=== PATIENT | female | born 1985 | race Caucasian/White ===

== ENCOUNTER 2018-12-14 09:35 | Emergency (ER) | payer OTHER ==
[~2018-12-14] VITALS: Ht 160 cm; Wt 74.8 kg
[2018-12-14] MEDS ORDERED: DOXYCYCLINE HY100 MG PO (10:57)
[2018-12-14] MEDS ORDERED: TESSALON PERLE100 MG PO (10:57)
[2018-12-14] MEDS ORDERED: PROMETHAZINE-D473 M1 PO (10:57)
== END 2018-12-14 11:37 | disposition home or self-care (01) ==
LOC: ED 09:35
DX: J40 Bronchitis, not specified as acute or chronic (principal); Z88.2 Allergy status to sulfonamides; Z88.1 Allergy status to other antibiotic agents; Z88.5 Allergy status to narcotic agent
CPT/HCPCS: 71045; 99283-25

== ENCOUNTER 2019-04-19 14:03 | Emergency (ER) | payer OTHER ==
[~2019-04-19] VITALS: Ht 160 cm; Wt 74.8 kg
[~2019-04-19 14:03] MED LIST: DOXYCYCLINE HY100 MG PO; PROMETHAZINE-D473 M1 PO; TESSALON PERLE100 MG PO
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
== END 2019-04-19 16:00 | disposition home or self-care (01) ==
LOC: ED 14:03
DX: S80.12XA Contusion of left lower leg, initial encounter (principal); Z87.891 Personal history of nicotine dependence; Z88.2 Allergy status to sulfonamides; Z88.1 Allergy status to other antibiotic agents; Z88.5 Allergy status to narcotic agent; Z88.6 Allergy status to analgesic agent; V89.2XXA Person injured in unspecified motor-vehicle accident, traffic, initial encounter
CPT/HCPCS: 99282

== ENCOUNTER 2020-11-26 08:57 | Emergency (ER) | payer OTHER ==
[~2020-11-26] VITALS: Ht 160 cm; Wt 74.8 kg
[2020-11-26] MEDS ORDERED: ULTRAM50 MG PO (14:07)
[2020-11-26] MEDS ORDERED: FLOMAX0.4 MG PO (14:10)
== END 2020-11-26 14:32 | disposition home or self-care (01) ==
LOC: ED 08:57
DX: N20.1 Calculus of ureter (principal); F17.200 Nicotine dependence, unspecified, uncomplicated; Z88.2 Allergy status to sulfonamides; Z88.8 Allergy status to other drugs, medicaments and biological substances; Z88.5 Allergy status to narcotic agent
CPT/HCPCS: 74177; 76830; 76856; 81001; 84703; 85025; 99284-25; J7030

== ENCOUNTER 2021-01-15 05:40 | Day surgery (SDC) | payer OTHER ==
[~2021-01-15] VITALS: Ht 160 cm; Wt 69.5 kg
--- NOTE | ~2021-01-15 | OR ---
[facility] [address] [place], [place] [address] Draft DATE OF OPERATION: 01/15/2021 SURGEON: Ana Quiles MD PREOPERATIVE DIAGNOSIS: A 4 mm distal right ureteral calculus. POSTOPERATIVE DIAGNOSES: 1. A 4 mm distal right ureteral calculus. 2. Ureteral narrowing due to impaction of 4 mm distal ureteral calculus. NAMES OF PROCEDURES: 1. Diagnostic cystoscopy with right retrograde pyelogram. 2. Right semi-rigid ureteroscopy with laser lithotripsy and basket extraction of stone fragments. 3. Insertion of indwelling right ureteral stent. ANESTHESIA: General. ESTIMATED BLOOD LOSS: Minimal. COMPLICATIONS: None. SPECIMENS: Fragments of right ureteral calculus sent to the lab for stone analysis. DRAINS: A 6 x 24 cm double-J ureteral stent inserted into the right ureter. INDICATIONS FOR PROCEDURE: Ms. Jane is a very pleasant 35-year-old female who recently presented to me with right flank pain. She had undergone a CT scan in the Emergency Department which revealed a 4 mm distal right ureteral calculus. After attempting a trial of passage for approximately 10 days, the patient contacted the clinic with severe discomfort. She elected at that time to undergo right ureteroscopy with laser lithotripsy and basket extraction of her stone. The risks and benefits of the procedure were discussed with the patient at that time and she agrees to proceed. PATIENT NAME: ROLDAN JANE OPERATIVE REPORT DATE OF : 81 REPORT #: [id number] PHYSICIAN: ANA QUILES MD PCP: SHAUN POTTER REPORT IS CONFIDENTIAL AND NOT TO BE RELEASED WITHOUT AUTHORIZATION [facility] [address] [place], [place] [address] Draft FINDINGS: 1. On cystoscopy, there was no evidence of any suspicious masses, lesions, or stones. Bilateral ureteral orifices are in their normal anatomic location. 2. Right retrograde pyelogram was performed which revealed a 1 cm filling defect in the distal right ureter. The remainder of the ureter was of normal caliber without any other overt filling defects. 3. The 4 mm stone fragmented quite easily using a holmium laser at 8 and 0.8 settings. A ZeroTip basket was used to successfully extract all of the stone fragments from the right ureter. Of note, there was a moderate 4-5 mm stricture noted just at the level of the stone, indicating an impacted stone. Once the stone was cleared, there was a small amount of scar tissue located in the area of impaction. 4. A 6 x 24 cm double-J ureteral stent was inserted into the right ureter under direct visualization without difficulty. DESCRIPTION OF PROCEDURE: After informed consent was obtained, the patient was taken back to the operating room. She was transferred from the [facility] to the operating room table, where general anesthesia was induced. She was placed in the dorsal lithotomy position and her genitalia prepped and draped in a standard sterile fashion. Using a 30-degree lens on a 22.5-Ukrainian introducer, a rigid cystoscope was inserted through her urethra into her bladder under direct visualization. Panendoscopic views of bladder were then obtained. Please see above findings. I turned my attention to the right ureteral orifice. A right retrograde pyelogram was performed using a cone-tipped catheter. Please see above findings. I then advanced a semi-rigid ureteroscope into the distal right ureter. I could appreciate significant narrowing in approximately 2 cm to 3 cm superior to the right ureteral orifice. The ureter had become stenotic in this area. I passed a Sensor wire through the area of stenosis and up into the right kidney. Over the wire, I passed the semi-rigid scope through the small stricture and up into the proximal ureter. I immediately noticed the 4 mm stone just sitting above the area of impaction. The stone was fragmented using a holmium laser at 8 and 0.8 settings with 270 micron fiber. The stone fragmented in three pieces, all of which I was able to retrieve using the ZeroTip basket. After the stone was cleared, the narrowed area of the ureter appeared significantly more patent. However, I did appreciate a very small area of scar tissue where the previous stricture had been located. With the stone completely free from the ureter, I advanced a Sensor wire through the ureteroscope and into the right renal pelvis. A 6 x 24 cm double-J ureteral stent was inserted into the right ureter under direct visualization without difficulty. A string was left attached to the stent. The string was secured to the patient's mons pubis. Her bladder was then emptied using a cystoscope and the procedure was then terminated. The patient tolerated the procedure well without any complication. She will now be transferred to the postanesthesia care unit in stable condition. PATIENT NAME: ROLDAN JANE OPERATIVE REPORT DATE OF : 81 REPORT #: [id number] PHYSICIAN: ANA QUILES MD PCP: SHAUN POTTER REPORT IS CONFIDENTIAL AND NOT TO BE RELEASED WITHOUT AUTHORIZATION [address] [address] Draft DISPOSITION: I discussed the details of today's procedure with the patient's mother and answered all of her questions. The patient will need to keep the stent in place for the next 5 days. She was instructed to remove her indwelling right ureteral stent on January 20. She will be off work until January 22. She will be sent home today with a prescription for Ultram 50 mg one tablet p.o. q.6 hours p.r.n. pain, dispense #30. She was also given a prescription for Cipro for a total of 7 days. The patient will be scheduled return to clinic in 6 weeks for postoperative evaluation. At that time, I will likely order an IVP to continue with adequate drainage from the right ureter. MD GONZALES Bello/CASSIE /[id number] Copies: ~ PATIENT NAME: ROLDAN JANE OPERATIVE REPORT DATE OF : 81 REPORT #: [id number] PHYSICIAN: ANA QUILES MD PCP: SHAUN POTTER REPORT IS CONFIDENTIAL AND NOT TO BE RELEASED WITHOUT AUTHORIZATION
[~2021-01-15 05:40] MED LIST changes: +AMITRIPTYLINE H25 MG PO; +FLOMAX0.4 MG PO; +RIZATRIPTAN10 M1 PO; +ULTRAM50 MG PO
--- NOTE | 2021-01-15 07:08 | NUR ---
PT UP TO BATHROOM WITH IV POLE. STATES RIGHT HAND IV IS UNCOMFORTABLE; IV PATENT, RUNS WELL WITH NO REDNESS OR SIGN OF INFILTRATION. PT BACK IN BED, WATCHING TABLET WITH LIGHTS DIMMED. CALL LIGHT WITHIN REACH.
--- NOTE | 2021-01-15 09:12 | NUR ---
01/15/21 0912 Mariaa Lawton 0830 PT ARRIVED IN PACU TRYING TO CLIMB OUT OF BED. RN REORIENTING PT. 0840 C/O URGE TO VOID. UP TO BSC. VOIDED 50ML PINK COLORED URINE. BACK IN BED. 0850 C/O FEELING COLD. WARM BLANKETS GIVEN. 09 TO DS. REPORT GIVEN TO RN.
--- NOTE | 2021-01-15 09:13 | NUR ---
0905: PT ARRIVES BACK TO DS TREATMENT ROOM FROM PACU AWAKE. PT DENIES NAUSEA AND STATES PAIN 8/10 IN SURGICAL SITE. PT PROVIDED WATER AND PUDDING PER REQUEST. PLAN TO GIVE PO PAIN MEDS IF PT CAN TOLERATE FOOD. CALL LIGHT WITHIN REACH, PT HAS PERSONAL CELL PHONE. SIMÓN SAMANO PLACED ON WARM.
--- NOTE | 2021-01-15 09:25 | NUR ---
PT TOLERATES PO WELL WITH NO COMPLAINTS OF NAUSEA, SECOND PUDDING PROVIDED PER REQUEST. PT UP TO BATHROOM WITH RN ASSIST, ABLE TO VOID PINK\RED-TINGED URINE WITH PAIN. PT BACK TO BED, BLANKETS PROVIDED, CALL LIGHT WITHIN REACH.
--- NOTE | 2021-01-15 09:45 | NUR ---
PT UP TO BATHROOM WITH RN ASSIST, HUNCHES OVER WITH PAIN WHEN STANDING UPRIGHT. PT ABLE TO VOID APPROX 50 MLS PINK URINE. PT BACK TO BED WITH BLANKETS AND SIMÓN HUGGER ON WARM. CALL LIGHT WITHIN REACH.
[2021-01-15] MEDS ORDERED: ULTRAM50 MG PO (10:03)
--- NOTE | 2021-01-15 10:14 | NUR ---
PT RESTING IN BED, CONT TO HAVE PAIN 8/10 WHEN ASKED. PT HAS QUESTIONS ABOUT STENT AND WHEN IT CAN BE REMOVED, THIS RN PLANS TO CONFIRM WITH DR. QUILES. PT DENIES PAIN MEDS, WILL PROVIDE WARM COMPRESS FOR PT. PT UP TO BATHROOM WITH RN ASSIST, VOIDS QS PINK URINE. CALL LIGHT WITHIN REACH.
--- NOTE | 2021-01-15 10:43 | NUR ---
DC CRITERIA MET AND PT WOULD LIKE TO DC HOME. PT DRESSES SELF AND OPENS CURTAIN. IV REMOVED WNL, TIP IN TACT. PT TO BATHROOM WITH STEADY GAIT. DC INSTRUCTIONS PRESENTED TO PT. PT SLUMPS OVER SIDE OF BED WINCING IN PAIN, ASKING "WHEN WILL THIS PAIN GO AWAY?" THIS RN STATES THAT PT NEEDS TO REST IN BED AND OFFERS PAIN MEDICATION. PT DENIES PAIN MEDICATION AND INSISTS ON DISCHARGING HOME. PT EDUCATED ABOUT STENT AND THIS RN SPEAKS TO DR. QUILES ABOUT PT STATUS/PAIN. DR. QUILES AGREES PT MAY DC HOME PER REQUEST AND OFFERS PT TO USE HEATING PAD AND TAKE WARM BATHS ALONG WITH TRAMADOL MEDICATION. PT DC TO [facility]RI[facility] WAITING AT MAIN HOSPITAL ENTRANCE TO HOME. DC PACKET INCLUDES PAIN SCRIPT AND WORK RELEASE.
== END 2021-01-15 10:50 | disposition home or self-care (01) ==
LOC: DS 05:40
PROVIDERS: ATTEND Urology
PROC: 0T768DZ Dilation of Right Ureter with Intraluminal Device, Via Natural or Artificial Opening Endoscopic (ICD-10-PCS; principal; 2021-01-15 06:45)
PROC: 0TC68ZZ Extirpation of Matter from Right Ureter, Via Natural or Artificial Opening Endoscopic (ICD-10-PCS; 2021-01-15 06:45)
DX: N20.1 Calculus of ureter (principal); Z88.1 Allergy status to other antibiotic agents; Z88.5 Allergy status to narcotic agent; Z88.8 Allergy status to other drugs, medicaments and biological substances
CPT/HCPCS: 00918; 74420; 82365; C1769; C2617; J0690; J1100; J1885; J2250; J2405; J2704; J2765; J3010; J7121; Q9967

== ENCOUNTER 2021-01-26 17:09 | Emergency (ER) | payer OTHER ==
[~2021-01-26] VITALS: Ht 160 cm; Wt 68.0 kg
--- OUTSIDE RECORDS SUMMARY | 2021-01-26 17:12 | XMS ---
PreManage Notification: ROLDAN PEGUERO Security Ultrasonographer Events No recent Security Events currently on file CRITERIA MET - [facility] CARE PROVIDERS PRO POTTER Physician Director Financial Planning 04/20/2019-Current PHONE: [phone] Juan Manuel has no Care Guidelines for this patient. Care History Medical/Surgical 04/20/2019 [facility] - PATIENT HAS SHAUN POTTER PCP - [facility]. 12/15/2018 [facility] - CHW CALLED PATIENT AND LEFT A VOICEMAIL- TO HELP PATIENT SET UP AN APT TO ESTABLISH CARE WITH A PCP. - SENT PATIENT NO PCP LETTER. 12/15/2018 [facility] - PATIENT HAS AN APT TO ESTABLISH CARE WITH [facility] ON Friday12/23/18 @ 10:15AM. - PATIENT IS AWARE OF THE APT AND IS GOING TO THE APT PER PATIENT. E.D. VISIT COUNT (12 MO.) 3 [facility] TOTAL 3 NOTE: Visits indicate total known visits. ED/UCC VISIT TRACKING (12 MO.) 01/26/2021 17:[address] [facility] [place] TYPE: Emergency COMPLAINT: - SOB, CHILLS, HARD TO SWALLOW, FATIGUE 12/21/2020 10:01 [facility] [place] TYPE: Emergency COMPLAINT: - R SIDE FLANK PAIN DIAGNOSES: - Other fpc (current) drug therapy - Allergy status to narcotic agent - Unspecified abdominal pain - Allergy status to other drugs, medicaments and biological substances - Allergy status to other antibiotic agents - Hydronephrosis with renal and ureteral calculous obstruction - Allergy status to sulfonamides 11/26/2020 08:[address] [facility] [place] TYPE: Emergency COMPLAINT: - N/V, CRAMPING DIAGNOSES: - Allergy status to narcotic agent - Allergy status to other drugs, medicaments and biological substances - Right lower quadrant pain - Calculus of ureter - Nicotine dependence, unspecified, uncomplicated - Allergy status to sulfonamides INPATIENT VISIT TRACKING (12 MO.) No inpatient visits to display in this time frame [id number]
== END 2021-01-26 18:33 | disposition home or self-care (01) ==
LOC: ED 17:09
DX: G43.909 Migraine, unspecified, not intractable, without status migrainosus (principal); M79.10 Myalgia, unspecified site; Z87.891 Personal history of nicotine dependence; Z88.2 Allergy status to sulfonamides; Z88.8 Allergy status to other drugs, medicaments and biological substances; Z88.6 Allergy status to analgesic agent; Z88.5 Allergy status to narcotic agent
CPT/HCPCS: 99283

== ENCOUNTER 2021-03-16 16:49 | Emergency (ER) | payer OTHER ==
[~2021-03-16] VITALS: Ht 160 cm; Wt 68.0 kg
--- OUTSIDE RECORDS SUMMARY | 2021-03-16 16:52 | XMS ---
PreManage Notification: ROLDAN PEGUERO Security Financial Director Events No recent Security Events currently on file CRITERIA MET - [facility] CARE PROVIDERS PRO POTTER Physician Pressing Machine Tender 04/20/2019-Current PHONE: [phone] Juan Manuel has no Care Guidelines for this patient. Care History Medical/Surgical 04/20/2019 [facility] - PATIENT HAS SHAUN POTTER PCP - [facility]. 12/15/2018 [facility] - CHW CALLED PATIENT AND LEFT A VOICEMAIL- TO HELP PATIENT SET UP AN APT TO ESTABLISH CARE WITH A PCP. - SENT PATIENT NO PCP LETTER. 12/15/2018 [facility] - PATIENT HAS AN APT TO ESTABLISH CARE WITH [facility] ON Friday12/23/18 @ 10:15AM. - PATIENT IS AWARE OF THE APT AND IS GOING TO THE APT PER PATIENT. E.D. VISIT COUNT (12 MO.) 4 [facility] [place] [facility] TOTAL 4 NOTE: Visits indicate total known visits. ED/UCC VISIT TRACKING (12 MO.) 03/16/2021 16:[address] [facility] [place] TYPE: Emergency COMPLAINT: - RT ARM INJURY 01/26/2021 17:[address] [facility] [place] TYPE: Emergency COMPLAINT: - SETHI, SOB DIAGNOSES: - Myalgia, unspecified site - Allergy status to other drugs, medicaments and biological substances - Personal history of nicotine dependence - Allergy status to narcotic agent - Migraine, unspecified, not intractable, without status migrainosus - Allergy status to analgesic agent - Allergy status to sulfonamides - Headache, unspecified 12/21/2020 10:01 [facility] [place] TYPE: Emergency COMPLAINT: - R SIDE FLANK PAIN DIAGNOSES: - Other residential (current) drug therapy - Allergy status to narcotic agent - Unspecified abdominal pain - Allergy status to other drugs, medicaments and biological substances - Allergy status to other antibiotic agents - Hydronephrosis with renal and ureteral calculous obstruction - Allergy status to sulfonamides 11/26/2020 08:58 [facility] [place] TYPE: Emergency COMPLAINT: - N/V, CRAMPING DIAGNOSES: - Allergy status to narcotic agent - Allergy status to other drugs, medicaments and biological substances - Right lower quadrant pain - Calculus of ureter - Nicotine dependence, unspecified, uncomplicated - Allergy status to sulfonamides INPATIENT VISIT TRACKING (12 MO.) No inpatient visits to display in this time frame [id number]
== END 2021-03-16 18:38 | disposition home or self-care (01) ==
LOC: ED 16:49
DX: G56.21 Lesion of ulnar nerve, right upper limb (principal); Z88.2 Allergy status to sulfonamides; Z88.1 Allergy status to other antibiotic agents; Z88.6 Allergy status to analgesic agent; Z88.8 Allergy status to other drugs, medicaments and biological substances; Z88.5 Allergy status to narcotic agent; Z79.899 Other long term (current) drug therapy
CPT/HCPCS: 73080; 99283-25

== ENCOUNTER 2021-05-21 12:31 | Emergency (ER) | payer OTHER ==
[~2021-05-21] VITALS: Ht 162.6 cm; Wt 68.0 kg
--- OUTSIDE RECORDS SUMMARY | 2021-05-21 12:34 | XMS ---
PreManage Notification: ROLDAN PEGUERO Security Garbage Pick Up Worker Events No recent Security Events currently on file [facility] PRO POTTER Physician Replanting Machine Crew 04/20/2019-Current PHONE: [phone] Juan Manuel has no Care Guidelines for this patient. Care History Medical/Surgical 04/20/2019 [facility] - PATIENT HAS SHAUN POTTER PCP - [facility]. 12/15/2018 [facility] - CHW CALLED PATIENT AND LEFT A VOICEMAIL- TO HELP PATIENT SET UP AN APT TO ESTABLISH CARE WITH A PCP. - SENT PATIENT NO PCP LETTER. 12/15/2018 [facility] - PATIENT HAS AN APT TO ESTABLISH CARE WITH [facility] ON Friday12/23/18 @ 10:15AM. - PATIENT IS AWARE OF THE APT AND IS GOING TO THE APT PER PATIENT. E.D. VISIT COUNT (12 MO.) 5 [facility] TOTAL 5 NOTE: Visits indicate total known visits. ED/UCC VISIT TRACKING (12 MO.) 05/21/2021 12:[address] [facility] [place] TYPE: Emergency COMPLAINT: - L EYE IRRATION 03/16/2021 16:49 [facility] [place] TYPE: Emergency COMPLAINT: - RT ARM INJURY DIAGNOSES: - Allergy status to sulfonamides - Other terminal make up operator (current) drug therapy - Allergy status to other drugs, medicaments and biological substances - Pain in right elbow - Allergy status to other antibiotic agents - Allergy status to narcotic agent - Lesion of ulnar nerve, right upper limb - Allergy status to analgesic agent 01/26/2021 17:10 [facility] [place] TYPE: Emergency COMPLAINT: - SETHI, SOB [...] R SIDE FLANK PAIN DIAGNOSES: - Other terminal make up operator (current) drug therapy - Allergy status to [...] visits to display in this time frame [id number]
[2021-05-21] MEDS ORDERED: VERAPAMIL HCL40 MG PO (13:08)
[2021-05-21] MEDS ORDERED: VENTOLIN HFA18 GM INH (13:09)
== END 2021-05-21 13:56 | disposition home or self-care (01) ==
LOC: ED 12:31
DX: H11.32 Conjunctival hemorrhage, left eye (principal); Z88.2 Allergy status to sulfonamides; Z88.1 Allergy status to other antibiotic agents; Z88.5 Allergy status to narcotic agent; Z88.6 Allergy status to analgesic agent; Z79.899 Other long term (current) drug therapy
CPT/HCPCS: 99282

== ENCOUNTER 2022-03-04 11:42 | Emergency (ER) | payer OTHER ==
[~2022-03-04] VITALS: Ht 162.6 cm; Wt 75.8 kg
[~2022-03-04 11:42] MED LIST changes: +VENTOLIN HFA18 GM INH; +VERAPAMIL HCL40 MG PO
[2022-03-04] MEDS ORDERED: REGLAN10 MG PO (13:09)
== END 2022-03-04 13:55 | disposition home or self-care (01) ==
LOC: ED 11:42
DX: G43.909 Migraine, unspecified, not intractable, without status migrainosus (principal); Z87.891 Personal history of nicotine dependence; Z88.8 Allergy status to other drugs, medicaments and biological substances; Z88.5 Allergy status to narcotic agent; Z79.899 Other long term (current) drug therapy
CPT/HCPCS: 96374; 96375; 99283-25; J1100; J2765; J7030

== ENCOUNTER 2022-06-13 12:26 | Emergency (ER) | payer OTHER ==
[~2022-06-13] VITALS: Ht 162.6 cm; Wt 71.1 kg
[~2022-06-13 12:26] MED LIST changes: +REGLAN10 MG PO
[2022-06-13] MEDS ORDERED: NORETHINDRONE0.35 MG PO (13:12)
== END 2022-06-13 15:31 | disposition home or self-care (01) ==
LOC: ED 12:26
DX: J02.9 Acute pharyngitis, unspecified (principal); G43.909 Migraine, unspecified, not intractable, without status migrainosus; Z87.891 Personal history of nicotine dependence; Z88.2 Allergy status to sulfonamides; Z88.1 Allergy status to other antibiotic agents; Z88.6 Allergy status to analgesic agent; Z88.5 Allergy status to narcotic agent; Z88.8 Allergy status to other drugs, medicaments and biological substances; Z79.899 Other long term (current) drug therapy
CPT/HCPCS: 87081; 87880; 99283

== ENCOUNTER 2022-06-25 14:07 | Emergency (ER) | payer OTHER ==
[~2022-06-25] VITALS: Ht 162.6 cm; Wt 70.8 kg
[~2022-06-25 14:07] MED LIST changes: +NORETHINDRONE0.35 MG PO
--- OUTSIDE RECORDS SUMMARY | 2022-06-25 14:14 | XMS ---
PreManage Notification: ROLDAN PEGUERO Security Filenet Admin Events No recent Security Events currently on file CRITERIA MET - [facility] - 2 Visits in 30 Days CARE PROVIDERS PRO POTTER Physician Direct Mail Marketer 04/20/2019-Current PHONE: [phone] Juan Manuel has no Care Guidelines for this patient. Care History Medical/Surgical 04/20/2019 [facility] - PATIENT HAS SHAUN POTTER PCP - [facility]. 12/15/2018 [facility] - CHW CALLED PATIENT AND LEFT A VOICEMAIL- TO HELP PATIENT SET UP AN APT TO ESTABLISH CARE WITH A PCP. - SENT PATIENT NO PCP LETTER. 12/15/2018 [facility] - PATIENT HAS AN APT TO ESTABLISH CARE WITH [facility] ON Friday12/23/18 @ 10:15AM. - PATIENT IS AWARE OF THE APT AND IS GOING TO THE APT PER PATIENT. E.D. VISIT COUNT (12 MO.) 3 [facility] TOTAL 3 NOTE: Visits indicate total known visits. ED/UCC VISIT TRACKING (12 MO.) 06/25/2022 14:07 [facility] [place] TYPE: Emergency COMPLAINT: - HEADACHE 06/13/2022 12:27 [facility] [place] TYPE: Emergency COMPLAINT: - L SIDE NECK SWELLING DIAGNOSES: - Other it compliance analyst (current) drug therapy - Personal history of nicotine dependence - Allergy status to other antibiotic agents - Allergy status to analgesic agent - Migraine, unspecified, not intractable, without status migrainosus - Allergy status to sulfonamides - Allergy status to other drugs, medicaments and biological substances - Acute pharyngitis, unspecified - Allergy status to narcotic agent 03/04/2022 11:[address] [facility] [place] TYPE: Emergency COMPLAINT: - HEADACHE, NAUSEA, STIFF NECK DIAGNOSES: - Other nursing home (current) drug therapy - Migraine, unspecified, not intractable, without status migrainosus - Headache, unspecified - Allergy status to narcotic agent - Allergy status to other drugs, medicaments and biological substances - Personal history of nicotine dependence INPATIENT VISIT TRACKING (12 MO.) No inpatient visits to display in this time frame [id number]
[2022-06-25] MEDS ORDERED: REGLAN10 MG PO (15:31)
== END 2022-06-25 16:10 | disposition home or self-care (01) ==
LOC: ED 14:07
DX: G43.909 Migraine, unspecified, not intractable, without status migrainosus (principal); Z87.442 Personal history of urinary calculi; Z87.891 Personal history of nicotine dependence; Z88.2 Allergy status to sulfonamides; Z88.6 Allergy status to analgesic agent; Z88.5 Allergy status to narcotic agent; Z88.8 Allergy status to other drugs, medicaments and biological substances; Z79.899 Other long term (current) drug therapy
CPT/HCPCS: 96372; 99283; J1100; J2765

== ENCOUNTER 2022-07-04 17:17 | Emergency (ER) | payer OTHER ==
[~2022-07-04] VITALS: Ht 162.6 cm; Wt 70.8 kg
--- OUTSIDE RECORDS SUMMARY | 2022-07-04 17:24 | XMS ---
PreManage Notification: ROLDAN PEGUERO Security Desk Maker Events No recent Security Events currently on file CRITERIA MET - [facility] - 2 Visits in 30 Days CARE PROVIDERS PRO POTTER Physician Certified Nurse Operating Room 04/20/2019-Current PHONE: [phone] Juan Manuel has no Care Guidelines for this patient. Care History Medical/Surgical 04/20/2019 [facility] - PATIENT HAS SHAUN POTTER PCP - [facility]. 12/15/2018 [facility] - CHW CALLED PATIENT AND LEFT A VOICEMAIL- TO HELP PATIENT SET UP AN APT TO ESTABLISH CARE WITH A PCP. - SENT PATIENT NO PCP LETTER. 12/15/2018 [facility] - PATIENT HAS AN APT TO ESTABLISH CARE WITH [facility] ON Friday12/23/18 @ 10:15AM. - PATIENT IS AWARE OF THE APT AND IS GOING TO THE APT PER PATIENT. E.D. VISIT COUNT (12 MO.) 4 [facility] TOTAL 4 NOTE: Visits indicate total known visits. ED/UCC VISIT TRACKING (12 MO.) 07/04/2022 17:17 [facility] [place] TYPE: Emergency COMPLAINT: - HEADACHE 06/25/2022 14:07 [facility] [place] TYPE: Emergency COMPLAINT: - HEADACHE DIAGNOSES: - Allergy status to analgesic agent - Allergy status to sulfonamides - Personal history of nicotine dependence - Allergy status to other drugs, medicaments and biological substances - Migraine, unspecified, not intractable, without status migrainosus - Other parts counterman (current) drug therapy - Allergy status to narcotic agent - Personal history of urinary calculi 06/13/2022 12:27 [facility] [place] TYPE: Emergency COMPLAINT: - L SIDE NECK SWELLING DIAGNOSES: - Allergy status to other antibiotic agents - Allergy status to analgesic agent - Migraine, unspecified, not intractable, without status migrainosus - Allergy status to sulfonamides - Allergy status to other drugs, medicaments and biological substances - Acute pharyngitis, unspecified - Allergy status to narcotic agent - Other parts counterman (current) drug therapy - Personal history of nicotine dependence 03/04/2022 11:43 [facility] [place] TYPE: Emergency COMPLAINT: - HEADACHE, NAUSEA, STIFF NECK DIAGNOSES: - Migraine, unspecified, not intractable, without status migrainosus - Headache, unspecified - Allergy status to narcotic agent - Allergy status to other drugs, medicaments and biological substances - Personal history of nicotine dependence - Other parts counterman (current) drug therapy INPATIENT VISIT TRACKING (12 MO.) No inpatient visits to display in this time frame [id number]
[2022-07-04] MEDS ORDERED: BUTALB-ACETAMI1 EAC2 PO (20:48)
== END 2022-07-04 21:10 | disposition home or self-care (01) ==
LOC: ED 17:17
DX: O99.891 Other specified diseases and conditions complicating pregnancy (principal); G43.909 Migraine, unspecified, not intractable, without status migrainosus; Z87.891 Personal history of nicotine dependence; Z88.6 Allergy status to analgesic agent; Z88.5 Allergy status to narcotic agent; Z88.8 Allergy status to other drugs, medicaments and biological substances; Z3A.00 Weeks of gestation of pregnancy not specified
CPT/HCPCS: 84703; 96374; 96375; 99283-25; J1100; J2765; J7030

== ENCOUNTER 2022-07-27 16:17 | Emergency (ER) | payer OTHER ==
[~2022-07-27] VITALS: Ht 162.6 cm; Wt 71.1 kg
[~2022-07-27 16:17] MED LIST changes: +BUTALB-ACETAMI1 EAC2 PO
--- OUTSIDE RECORDS SUMMARY | 2022-07-27 16:24 | XMS ---
PreManage Notification: ROLDAN PEGUERO Security Chief Radiologic Technologist Events No recent Security Events currently on file CRITERIA MET - [facility] [place] - 2 Visits in 30 Days CARE PROVIDERS PRO POTTER Physician Reel Cutter 04/20/2019-Current PHONE: [phone] Juan Manuel has no Care Guidelines for this patient. Care History Medical/Surgical 04/20/2019 [facility] - PATIENT HAS SHAUN POTTER PCP - [facility]. 12/15/2018 [facility] - [facility] CALLED PATIENT AND LEFT A VOICEMAIL- TO HELP PATIENT SET UP AN APT TO ESTABLISH CARE WITH A PCP. - SENT PATIENT NO PCP LETTER. 12/15/2018 [facility] - PATIENT HAS AN APT TO ESTABLISH CARE WITH [facility] ON Friday12/23/18 @ 10:15AM. - PATIENT IS AWARE OF THE APT AND IS GOING TO THE APT PER PATIENT. E.D. VISIT COUNT (12 MO.) 5 [facility] TOTAL 5 NOTE: Visits indicate total known visits. ED/UCC VISIT TRACKING (12 MO.) 07/27/2022 16:17 [facility] [place] TYPE: Emergency COMPLAINT: - VAGINAL BLEEDING 07/04/2022 17:17 [facility] [place] TYPE: Emergency COMPLAINT: - HEADACHE DIAGNOSES: - Weeks of gestation of not specified - Allergy status to narcotic agent - Migraine, unspecified, not intractable, without status migrainosus - Allergy status to analgesic agent - Other specified diseases and conditions complicating - Allergy status to other drugs, medicaments and biological substances - Personal history of nicotine dependence 06/25/2022 14:07 [facility] [place] TYPE: Emergency COMPLAINT: - HEADACHE DIAGNOSES: - Allergy status to narcotic agent - Personal history of urinary calculi - Allergy status to analgesic agent - Allergy status to sulfonamides - Personal history of nicotine dependence - Allergy status to other drugs, medicaments and biological substances - Migraine, unspecified, not intractable, without status migrainosus - Other coater associate (current) drug therapy 06/13/2022 12:27 [facility] [place] TYPE: Emergency COMPLAINT: - L SIDE NECK SWELLING DIAGNOSES: - Other snf (current) drug therapy - Personal history of nicotine dependence - Allergy status to other antibiotic agents - Allergy status to analgesic agent - Migraine, unspecified, not intractable, without status migrainosus - Allergy status to sulfonamides - Allergy status to other drugs, medicaments and biological substances - Acute pharyngitis, unspecified - Allergy status to narcotic agent 03/04/2022 11:43 [facility] [place] TYPE: Emergency COMPLAINT: - HEADACHE, NAUSEA, STIFF NECK DIAGNOSES: - Other snf (current) drug therapy - Migraine, unspecified, not intractable, without status migrainosus - Headache, unspecified - Allergy status to narcotic agent - Allergy status to other drugs, medicaments and biological substances - Personal history of nicotine dependence INPATIENT VISIT TRACKING (12 MO.) No inpatient visits to display in this time frame [email or web address]
== END 2022-07-27 19:08 | disposition home or self-care (01) ==
LOC: ED 16:17
DX: O20.9 Hemorrhage in early pregnancy, unspecified (principal); O99.351 Diseases of the nervous system complicating pregnancy, first trimester; G43.909 Migraine, unspecified, not intractable, without status migrainosus; Z87.891 Personal history of nicotine dependence; Z88.8 Allergy status to other drugs, medicaments and biological substances; Z88.2 Allergy status to sulfonamides; Z88.6 Allergy status to analgesic agent; Z88.5 Allergy status to narcotic agent; Z79.899 Other long term (current) drug therapy; Z3A.01 Less than 8 weeks gestation of pregnancy
CPT/HCPCS: 36415; 76801; 76815; 76817; 80053; 84702; 85025; 86900; 86901; 99284-25; J7030

== ENCOUNTER 2022-08-24 18:54 | Emergency (ER) | payer OTHER ==
[~2022-08-24] VITALS: Ht 162.6 cm; Wt 75.8 kg
--- OUTSIDE RECORDS SUMMARY | 2022-08-24 19:04 | XMS ---
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 Care History Medical/Surgical 04/20/2019 [facility] - PATIENT HAS SHAUN POTTER PCP - [facility]. 12/15/2018 [facility] - CHW CALLED PATIENT AND LEFT A VOICEMAIL- TO HELP PATIENT SET UP AN APT TO ESTABLISH CARE WITH A PCP. - SENT PATIENT NO PCP LETTER. 12/15/2018 [facility] - PATIENT HAS AN APT TO ESTABLISH CARE WITH [facility] ON Friday12/23/18 @ 10:15AM. - PATIENT IS AWARE OF THE APT AND IS GOING TO THE APT PER PATIENT. E.D. VISIT COUNT (12 MO.) 6 [facility] TOTAL 6 NOTE: Visits indicate total known visits. ED/UCC VISIT TRACKING (12 MO.) 08/24/2022 18:56 [facility] [place] TYPE: Emergency COMPLAINT: - DENTAL PAIN 07/27/2022 16:17 [facility] [place] TYPE: Emergency COMPLAINT: - VAGINAL BLEEDING DIAGNOSES: - Allergy status to narcotic agent - Migraine, unspecified, not intractable, without status migrainosus - Other manager terminal (current) drug therapy - Personal history of nicotine dependence - Less than 8 weeks gestation of - Diseases of the nervous system complicating , first trimester - Allergy status to other drugs, medicaments and biological substances - Allergy status to analgesic agent - Hemorrhage in early , unspecified - Allergy status to sulfonamides 07/04/2022 17:17 [facility] [place] TYPE: Emergency COMPLAINT: - HEADACHE DIAGNOSES: - Allergy status to other drugs, medicaments and biological substances - Personal history of nicotine dependence - Weeks of gestation of not specified - Allergy status to narcotic agent - Migraine, unspecified, not intractable, without status migrainosus - Allergy status to analgesic agent - Other specified diseases and conditions complicating 06/25/2022 14:07 [facility] [place] TYPE: Emergency COMPLAINT: - HEADACHE DIAGNOSES: - Migraine, unspecified, not intractable, without status migrainosus - Other alf (current) drug therapy - Allergy status to narcotic agent - Personal history of urinary calculi - Allergy status to analgesic agent - Allergy status to sulfonamides - Personal history of nicotine dependence - Allergy status to other drugs, medicaments and biological substances 06/13/2022 12:27 [facility] [place] TYPE: Emergency COMPLAINT: - L SIDE NECK SWELLING DIAGNOSES: - Acute pharyngitis, unspecified - Allergy status to narcotic agent - Other manager terminal (current) drug therapy - Personal history of nicotine dependence - Allergy status to other antibiotic agents - Allergy status to analgesic agent - Migraine, unspecified, not intractable, without status migrainosus - Allergy status to sulfonamides - Allergy status to other drugs, medicaments and biological substances 03/04/2022 11:[address] [facility] [place] TYPE: Emergency COMPLAINT: - HEADACHE, NAUSEA, STIFF NECK DIAGNOSES: - Allergy status to other drugs, medicaments and biological substances - Personal history of nicotine dependence - Other manager terminal (current) drug therapy - Migraine, unspecified, not intractable, without status migrainosus - Headache, unspecified - Allergy status to narcotic agent INPATIENT VISIT TRACKING (12 MO.) No inpatient visits to display in this time frame [email or web address]
[2022-08-24] MEDS ORDERED: EPINEPHRIN0.3 MG/0.3 IM (19:25)
[2022-08-24] MEDS ORDERED: VENTOLIN HFA18 GM INH (19:27)
[2022-08-24] MEDS ORDERED: ONE-A-DAY PREN1 EAC2 PO (19:27)
[2022-08-24] MEDS ORDERED: CALCIUM500 MG PO (19:27)
[2022-08-24] MEDS ORDERED: AMOXICILLIN500 MG PO (20:12)
== END 2022-08-24 20:37 | disposition home or self-care (01) ==
LOC: ED 18:54
DX: K04.7 Periapical abscess without sinus (principal); Z87.442 Personal history of urinary calculi; Z88.8 Allergy status to other drugs, medicaments and biological substances; Z88.2 Allergy status to sulfonamides; Z88.5 Allergy status to narcotic agent; Z88.6 Allergy status to analgesic agent; Z87.891 Personal history of nicotine dependence
CPT/HCPCS: 99282

== ENCOUNTER 2022-09-15 16:46 | Emergency (ER) | payer OTHER ==
[~2022-09-15] VITALS: Ht 162.6 cm; Wt 75.0 kg
[~2022-09-15 16:46] MED LIST changes: +AMOXICILLIN500 MG PO; +CALCIUM500 MG PO; +EPINEPHRIN0.3 MG/0.3 IM; +ONE-A-DAY PREN1 EAC2 PO
--- OUTSIDE RECORDS SUMMARY | 2022-09-15 16:49 | XMS ---
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 Care History Medical/Surgical 04/20/2019 [facility] - PATIENT HAS SHAUN POTTER PCP - [facility]. 12/15/2018 [facility] - CHW CALLED PATIENT AND LEFT A VOICEMAIL- TO HELP PATIENT SET UP AN APT TO ESTABLISH CARE WITH A PCP. - SENT PATIENT NO PCP LETTER. 12/15/2018 [facility] - PATIENT HAS AN APT TO ESTABLISH CARE WITH [facility] ON Friday12/23/18 @ 10:15AM. - PATIENT IS AWARE OF THE APT AND IS GOING TO THE APT PER PATIENT. E.D. VISIT COUNT (12 MO.) 7 [facility] TOTAL 7 NOTE: Visits indicate total known visits. ED/UCC VISIT TRACKING (12 MO.) 09/15/2022 16:[address] [facility] [place] TYPE: Emergency COMPLAINT: - VOMITING 08/24/2022 18:56 [facility] [place] TYPE: Emergency COMPLAINT: - DENTAL PAIN DIAGNOSES: - Personal history of nicotine dependence - Allergy status to narcotic agent - Allergy status to analgesic agent - Other specified disorders of teeth and supporting structures - Allergy status to sulfonamides - Periapical abscess without sinus - Allergy status to other drugs, medicaments and biological substances - Personal history of urinary calculi 07/27/2022 16:17 [facility] TYPE: Emergency COMPLAINT: - VAGINAL BLEEDING DIAGNOSES: - Allergy status to sulfonamides - Allergy status to narcotic agent - Migraine, unspecified, not intractable, without status migrainosus - Other supervisor intermediates (current) drug therapy - Personal history of nicotine dependence - Less than 8 weeks gestation of - Diseases of the nervous system complicating , first trimester - Allergy status to other drugs, medicaments and biological substances - Allergy status to analgesic agent - Hemorrhage in early , unspecified 07/04/2022 17:17 [facility] [place] TYPE: Emergency COMPLAINT: - HEADACHE DIAGNOSES: - Other specified diseases and conditions complicating - Allergy status to other drugs, medicaments and biological substances - Personal history of nicotine dependence - Weeks of gestation of not specified - Allergy status to narcotic agent - Migraine, unspecified, not intractable, without status migrainosus - Allergy status to analgesic agent 06/25/2022 14:07 [facility] [place] TYPE: Emergency COMPLAINT: - HEADACHE DIAGNOSES: - Allergy status to other drugs, medicaments and biological substances - Migraine, unspecified, not intractable, without status migrainosus - Other supervisor intermediates (current) drug therapy - Allergy status to narcotic agent - Personal history of urinary calculi - Allergy status to analgesic agent - Allergy status to sulfonamides - Personal history of nicotine dependence 06/13/2022 12:27 [facility] [place] TYPE: Emergency COMPLAINT: - L SIDE NECK SWELLING DIAGNOSES: - Allergy status to other drugs, medicaments and biological substances - Acute pharyngitis, unspecified - Allergy status to narcotic agent - Other supervisor intermediates (current) drug therapy - Personal history of nicotine dependence - Allergy status to other antibiotic agents - Allergy status to analgesic agent - Migraine, unspecified, not intractable, without status migrainosus - Allergy status to sulfonamides 03/04/2022 11:43 [facility] TYPE: Emergency COMPLAINT: - HEADACHE, NAUSEA, STIFF NECK DIAGNOSES: - Allergy status to narcotic agent - Allergy status to other drugs, medicaments and biological substances - Personal history of nicotine dependence - Other supervisor intermediates (current) drug therapy - Migraine, unspecified, not intractable, without status migrainosus - Headache, unspecified INPATIENT VISIT TRACKING (12 MO.) No inpatient visits to display in this time frame [email or web address]
== END 2022-09-15 21:00 | disposition home or self-care (01) ==
LOC: ED 16:46
DX: O99.891 Other specified diseases and conditions complicating pregnancy (principal); R10.9 Unspecified abdominal pain; R19.7 Diarrhea, unspecified; O21.9 Vomiting of pregnancy, unspecified; Z87.891 Personal history of nicotine dependence; Z88.2 Allergy status to sulfonamides; Z88.5 Allergy status to narcotic agent; Z88.6 Allergy status to analgesic agent; Z88.8 Allergy status to other drugs, medicaments and biological substances; Z3A.16 16 weeks gestation of pregnancy
CPT/HCPCS: 36415; 76815; 76817; 80053; 83690; 85025; 99284-25; A9270; J7030

== ENCOUNTER 2022-10-24 17:13 | Emergency (ER) | payer OTHER ==
[~2022-10-24] VITALS: Ht 162.6 cm; Wt 75.0 kg
--- OUTSIDE RECORDS SUMMARY | 2022-10-24 17:16 | XMS ---
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 Care History Medical/Surgical 04/20/2019 [facility] - PATIENT HAS SHAUN POTTER PCP - [facility]. 12/15/2018 [facility] - W CALLED PATIENT AND LEFT A VOICEMAIL- TO HELP PATIENT SET UP AN APT TO ESTABLISH CARE WITH A PCP. - SENT PATIENT NO PCP LETTER. 12/15/2018 [facility] - PATIENT HAS AN APT TO ESTABLISH CARE WITH [facility] ON Friday12/23/18 @ 10:15AM. - PATIENT IS AWARE OF THE APT AND IS GOING TO THE APT PER PATIENT. E.D. VISIT COUNT (12 MO.) 8 [facility]. TOTAL 8 NOTE: Visits indicate total known visits. ED/UCC VISIT TRACKING (12 MO.) 10/24/2022 17:[address] [facility] [place] TYPE: Emergency COMPLAINT: - COLD/FLU SYMPTOMS, DIFFICULTY BREATHING, 21 WKS PG 09/15/2022 16:[address] [facility] [place] TYPE: Emergency COMPLAINT: - VOMITING DIAGNOSES: - Allergy status to other drugs, medicaments and biological substances - 16 weeks gestation of - Personal history of nicotine dependence - Diarrhea, unspecified - Vomiting of , unspecified - Unspecified abdominal pain - Allergy status to sulfonamides - Allergy status to narcotic agent - Allergy status to analgesic agent - Other specified diseases and conditions complicating 08/24/2022 18:56 [facility] TYPE: Emergency COMPLAINT: - DENTAL PAIN DIAGNOSES: - Periapical abscess without sinus - Allergy status to other drugs, medicaments and biological substances - Personal history of urinary calculi - Personal history of nicotine dependence - Allergy status to narcotic agent - Allergy status to analgesic agent - Other specified disorders of teeth and supporting structures - Allergy status to sulfonamides 07/27/2022 16:17 [facility] TYPE: Emergency COMPLAINT: - VAGINAL BLEEDING DIAGNOSES: - Diseases of the nervous system complicating , first trimester - Allergy status to other drugs, medicaments and biological substances - Allergy status to analgesic agent - Hemorrhage in early , unspecified - Allergy status to sulfonamides - Allergy status to narcotic agent - Migraine, unspecified, not intractable, without status migrainosus - Other fpc (current) drug therapy - Personal history of nicotine dependence - Less than 8 weeks gestation of 07/04/2022 17:17 [facility] TYPE: Emergency COMPLAINT: - HEADACHE DIAGNOSES: - Allergy status to narcotic agent - Migraine, unspecified, not intractable, without status migrainosus - Allergy status to analgesic agent - Other specified diseases and conditions complicating - Allergy status to other drugs, medicaments and biological substances - Personal history of nicotine dependence - Weeks of gestation of not specified 06/25/2022 14:07 [facility] TYPE: Emergency COMPLAINT: - HEADACHE DIAGNOSES: - Allergy status to analgesic agent - Allergy status to sulfonamides - Personal history of nicotine dependence - Allergy status to other drugs, medicaments and biological substances - Migraine, unspecified, not intractable, without status migrainosus - Other fpc (current) drug therapy - [...] Allergy status to narcotic agent - Other exterminator helper termite (current) drug therapy - Personal history of nicotine dependence 03/04/2022 11:[address] [facility] [place] TYPE: Emergency COMPLAINT: - HEADACHE, NAUSEA, STIFF NECK DIAGNOSES: - Migraine, unspecified, not intractable, without status migrainosus - Headache, unspecified - Allergy status to narcotic agent - Allergy status to other drugs, medicaments and biological substances - Personal history of nicotine dependence - Other exterminator helper termite (current) drug therapy INPATIENT VISIT TRACKING (12 MO.) No inpatient visits to display in this time frame [email or web address]
[2022-10-24] MEDS ORDERED: TAMIFLU75 MG PO (20:50)
== END 2022-10-24 21:33 | disposition home or self-care (01) ==
LOC: ED 17:13
DX: O99.512 Diseases of the respiratory system complicating pregnancy, second trimester (principal); J10.1 Influenza due to other identified influenza virus with other respiratory manifestations; Z3A.21 21 weeks gestation of pregnancy; Z20.822 Contact with and (suspected) exposure to COVID-19; Z87.891 Personal history of nicotine dependence; Z88.2 Allergy status to sulfonamides; Z88.5 Allergy status to narcotic agent; Z88.8 Allergy status to other drugs, medicaments and biological substances; Z88.6 Allergy status to analgesic agent; Z79.899 Other long term (current) drug therapy
CPT/HCPCS: 36415; 80053; 81003; 85025; 87502; 99284; J7030; U0003

== ENCOUNTER 2023-02-11 08:39 | Inpatient (IN) | payer OTHER ==
[~2023-02-11] VITALS: Ht 162.6 cm; Wt 98.4 kg
[~2023-02-11 08:39] MED LIST changes: +CALAMINE LOTIO177 M1 TOP; +HYDROXYZINE HCL25 MG PO; +TAMIFLU75 MG PO; +URSODIOL300 MG PO
[2023-02-13 06:01] VITALS: BP 138/78
--- NOTE | 2023-02-13 09:07 | NUR ---
02/13/23 0907 Renée Cochran 0848 PT ARRIVED TO PACU AND DENIES PAIN AND NAUSEA. PT REQUESTING WATER. PLAN OF CARE DISCUSSED. 0852 HOB INCREASED AND PT CONTINEUS TO DENIES NAUSEA. PT SIPPING WATER 0900 BABY TO CHEST AND PT CONTINUES TO DENY CONCERNS. HOB INCREASED.
[2023-02-13 09:18] VITALS: BP 124/76
--- NOTE | 2023-02-13 14:18 | OR ---
[facility] [address] [place], [place] [address] Signed DATE OF OPERATION: 02/13/2023 SURGEON: Khari Godinez MD The patient of Dr. Godinez. PREOPERATIVE DIAGNOSES: Term , previous section, intrahepatic cholestasis of , previous right salpingectomy and sterilization. POSTOPERATIVE DIAGNOSES: Term , previous section, intrahepatic cholestasis of , previous right salpingectomy and sterilization. PROCEDURE: Repeat low transverse segment section, delivery of live male and left partial salpingectomy. WARDROBE STYLIST: Helena Smiley DO ANESTHESIA: Spinal and TAP block. COMPLICATIONS: None. DRAINS: Payton to bladder. FINDINGS: Live male infant, Apgars 9 and 9, weight 6 pounds 6 ounces. Normal uterus, normal left tube and ovary. Normal right ovary with absent right fallopian tube. No adhesions. ESTIMATED BLOOD LOSS: 500 ml DESCRIPTION OF PROCEDURE: The patient was brought to the operating room, placed in the supine position. After adequate spinal anesthesia was obtained, she was prepped and draped in usual sterile Electronically Signed By: KHARI GODINEZ MD 02/13/23 1418 PATIENT NAME: ROLDAN PEGUERO OPERATIVE REPORT DATE OF : 81 REPORT #: [id number] PHYSICIAN: KHARI GODINEZ MD PCP: DURGA TOBIN REPORT IS CONFIDENTIAL AND NOT TO BE RELEASED WITHOUT AUTHORIZATION [facility] [address] [facility] [address] [place], [place] [address] Signed fashion. The patient had a Payton catheter already placed. A Pfannenstiel skin incision was made with a scalpel through previous surgical scar. Subcutaneous tissue was dissected with the Bovie and scalpel. The fascia was nicked with scalpel and extended in transverse fashion using curved scissors. The underlying abdominal musculature was bluntly and sharply from the fascia above and below the incision. The abdominal musculature was bluntly and sharply along the midline. The peritoneum was nicked with scissors and extended in a vertical fashion using curved scissors. The Jose self-retaining retractor was inserted into the incision and tightened in place. The lower uterine segment was identified, noted to be quite thin. Lower uterine segment was carefully nicked with scalpel and extended in transverse fashion using finger dissection. The uterus was noted to be in vertex ROT presentation. head was easily delivered from the incision. The rest of the infant was easily delivered from the incision. The cord was doubly clamped and cut and passed off table in good condition to awaiting nurse. The placenta was manually removed and uterine cavity explored with a lap pad to remove any retained membranes. An angle stitch of 0 Monocryl was placed at one end of the incision and a running locking stitch of 0-Monocryl starting at the other end used to close the incision. A 2nd running stitch of 0 Monocryl was used to imbricate the 1st layer. Good hemostasis was noted. The entire pelvis was irrigated, suctioned, examined and noted to have good hemostasis. Uterus was lifted out of the abdomen and the left fallopian tube identified. There was some filmy adhesions between the tube and ovary, these were taken down with the Bovie. The midportion of the tube was grasped with a [place] clamp and an avascular portion of mesosalpinx opened with the Bovie. Two ligatures of 0 chromic were passed through the opening and the tube tied proximal and distal to the clamp removing approximately 4 cm of fallopian tube. After the two ligatures were tied, the intervening portion of tube was removed using Metzenbaum scissors and the pedicles cauterized with the Bovie. Good hemostasis was noted. The right side was identified and the tube noted to be absent and just a small stump at the cornua was noted. The uterus placed back into the abdomen. The Jose retractor removed and the anterior wall of peritoneum closed using running stitch of 2-0 Vicryl suture. The abdominal musculature was reapproximated using interrupted stitches of 0 Vicryl suture. The abdominal wall incision was irrigated, suctioned, and examined, and any bleeding spots were cauterized with the Bovie. The powdered ACell was sprinkled over the abdominal musculature to help with healing and then the fascia closed using two running stitches of 0 Vicryl suture meeting in the midline. Subcutaneous tissue was irrigated, suctioned, and examined, and any bleeding spots were cauterized with the Bovie. Subcutaneous tissue was then closed using interrupted stitches of 3-0 Vicryl suture. The skin was reapproximated using skin clips attempting to reapproximate the tattoo that had been previously cut and misaligned along the previous section. The patient tolerated the procedure well, went to the recovery room in good condition. The segment of Fallopian tube was sent to pathology for identification. The sponge, needle, and instrument count was correct Electronically Signed By: KHARI GODINEZ MD 02/13/23 1418 PATIENT NAME: ROLDAN PEGUERO OPERATIVE REPORT DATE OF : 81 REPORT #: [id number] PHYSICIAN: KHARI GODINEZ MD PCP: DURGA TOBIN REPORT IS CONFIDENTIAL AND NOT TO BE RELEASED WITHOUT AUTHORIZATION [facility] [address], [place] [address] Signed at the end of procedure. MD JARRET Schwab/JOSEPHL /[id number] cc: SANGITA Bragg Copies: DURGA TOBIN ~ Electronically Signed By: KHARI GODINEZ MD 02/13/23 1418 PATIENT NAME: ROLDAN PEGUERO OPERATIVE REPORT DATE OF : 81 REPORT #: [id number] PHYSICIAN: KHARI GODINEZ MD PCP: DURGA TOBIN REPORT IS CONFIDENTIAL AND NOT TO BE RELEASED WITHOUT AUTHORIZATION
--- NOTE | 2023-02-14 21:21 | PR ---
[facility] [address] [place], [place] [address] Signed PP Progress Notes Datetime Report Generated by CPN: 02/14/2023 21:21 SUBJECTIVE: [id number] Nausea/Vomiting: Denies Flatus: No Bowel Movement: No Vital Signs: [id number] Vital Signs: Reviewed EXAM: Ongoing Cardiovascular: Normal Respiratory: Normal Abdomen/Uterus: Normal Lochia: Normal Extremities: Normal Incision: Normal Progress: Normal Exam Comments: NAD, sitting up in bed No dyspnea/ retractions RRR Abd SNTND, FFBU Incision: dressing in place, no strikethrough Payton removed Ext: 1+ BLLE pitting edema IMPRESSION/PLAN/PROCEDURES: [id number] Impression: Normal Progression; Pain Plan: Continue Present Management Other Plans: Anesthesia consult - see notes Progress Notes: POD#1 s/p RLTCS+LS -progressing well postop: ambulating, voiding, tolerating regular diet. +flatus, no BM yet -pain mgmt: anesthesia consult with Sally this afternoon. Pt intolerance to TAP block placement, will discontinue dilaudid and use nubain 10mg IV q3-6h prn for pain, and add gabapentin 300mg po TID in addition to tylenol, ice, and abdominal binder. -continue postop care Signing Physician: Dimas Smiley DO *Electronically Signed* 02/14/232120 DIMAS SMILEY DO PATIENT NAME: ROLDAN PEGUERO PROGRESS NOTE DATE OF : 81 PHYSICIAN: DIMAS SMILEY DO RPT #: [id number] REPORT IS CONFIDENTIAL AND NOT TO BE RELEASED WITHOUT AUTHORIZATION
--- NOTE | 2023-02-15 11:45 | PR ---
[facility] [address] [place], [place] [address] Signed PP Progress Notes Datetime Report Generated by CPRosario: 02/15/2023 11:45 SUBJECTIVE: [id number] Pain: Abnormal Pain Comments: still complaining of abdominal pain, but Nubain has been helping Nausea/Vomiting: Denies Flatus: No Bowel Movement: No Vital Signs: [id number] Vital Signs: Reviewed; Within Normal Limits EXAM: Met Cardiovascular: Normal Respiratory: Normal Abdomen/Uterus: Normal Lochia: Normal Extremities: Normal Incision: Normal Progress: Normal Exam Comments: Patient appears comfortable, no distress IMPRESSION/PLAN/PROCEDURES: [id number] Impression: Normal Progression; Pain Other Impression: Normal post-op except for pain management Plan: Continue Present Management Other Plans: Anesthesia consult - see notes Procedures: None Progress Notes: Doing well, tolerating food, up moving without difficulty, has showered. Will continue with Gabapentin and switch back to oral Dilaudid, so patient can be discharged, hopefully tomorrow. Discussed need to be off IV pain meds with patient; patient willing to try again. Signing Physician: Khari Hope MD Copies: ~ *Electronically Signed* 02/15/23 1145 KHARI HOPE MD PATIENT NAME: ROLDAN PEGUERO PROGRESS NOTE DATE OF : 81 PHYSICIAN: KHARI HOPE MD RPT #: [id number] REPORT IS CONFIDENTIAL AND NOT TO BE RELEASED WITHOUT AUTHORIZATION
--- NOTE | 2023-02-16 10:03 | PR ---
[facility] [address] [place], [place] [address] Signed PP Progress Notes Datetime Report Generated by CPN: 02/16/2023 10:03 SUBJECTIVE: [id number] Pain: Within Normal Limits Pain Comments: still complaining of abdominal pain, but Nubain has been helping Nausea/Vomiting: Denies Flatus: No Bowel Movement: No Vital Signs: [id number] Vital Signs: Reviewed; Within Normal Limits Notable Details: PP HGb/HCt = 8.9/26.6 EXAM: Met Cardiovascular: Normal Respiratory: Normal Abdomen/Uterus: Normal Lochia: Normal Extremities: Normal Incision: Normal Progress: Normal Exam Comments: Patient appears comfortable, no distress IMPRESSION/PLAN/PROCEDURES: [id number] Impression: Normal Progression Other Impression: Normal post-op except for pain management Plan: Discharge Other Plans: Anesthesia consult - see notes Procedures: None Progress Notes: Doing much better, ready to go home. Signing Physician: Mikal Hope MD Copies: ~ *Electronically Signed* 02/16/23 1003 MIKAL HOPE MD PATIENT NAME: ROLDAN PEGUERO PROGRESS NOTE DATE OF : 81 PHYSICIAN: MIKAL HOPE MD RPT #: [id number] REPORT IS CONFIDENTIAL AND NOT TO BE RELEASED WITHOUT AUTHORIZATION
--- NOTE | 2023-02-18 16:45 | PATH ---
[facility] [address] [place], [place] [address] Signed SPECIMEN(S): A LEFT FALLOPIAN TUBE SPECIMEN SOURCE: A. LEFT FALLOPIAN TUBE CLINICAL HISTORY: Repeat . History of right salpingectomy with tubal . FINAL PATHOLOGIC DIAGNOSIS: Left fallopian tube, left salpingectomy: - Cross-sections of benign fallopian tube. DDF:em:C2NR MICROSCOPIC EXAMINATION: Histologic sections of all submitted blocks are examined by light microscopy. These findings, together with the gross examination, support the pathologic diagnosis. GROSS DESCRIPTION: The specimen, labeled and designated "Jane, A, " and designated on the requisition "left fallopian tubes," is received in formalin and consists of a 2.6 x 0.9 cm segment of fallopian tube. The serosal surface is violaceous and smooth. No fimbria are grossly identified. Cut sections reveal a pinpoint lumen. The specimen is entirely submitted in (A1). FB (under the direct supervision of a pathologist) The Gross Description was prepared using a voice recognition system. The report was reviewed for accuracy; however, sound-alike word errors, addition and/or deletions may occur. If there is any question about this report, please contact Client Services. PERFORMING LABORATORY: The technical component was performed by [facility], [address] [place] [address] (CLIA# [id number]). Professional interpretation was performed by [facility], [facility], [address] [place] [id number] (CLIA#: [id number]) Diagnostician: Richard Guaman DO Pathologist Electronically Signed 02/18/2023 PATIENT NAME: ROLDAN JANE PATHOLOGY DATE OF : 81 REPORT #: [id number] PHYSICIAN: [facility] PATHOLOG[facility] PCP: DURGA TOBIN REPORT IS CONFIDENTIAL AND NOT TO BE RELEASED WITHOUT AUTHORIZATION [facility] [address] [place], [place] [address] Signed Copies: ~ PATIENT NAME: ROLDAN JANE PATHOLOGY DATE OF : 81 REPORT #: [id number] PHYSICIAN: TABITHA PATHOLOGY PCP: DURGA TOBIN REPORT IS CONFIDENTIAL AND NOT TO BE RELEASED WITHOUT AUTHORIZATION
== END 2023-02-16 13:10 | disposition home or self-care (01) | DRG 783 ==
LOC: FBC 02-13 05:00
PROVIDERS: ADMIT General Practice; ATTEND General Practice
PROC: 10D00Z1 Extraction of Products of Conception, Low, Open Approach (ICD-10-PCS; principal; 2023-02-13 07:30)
PROC: 0UB60ZZ Excision of Left Fallopian Tube, Open Approach (ICD-10-PCS; 2023-02-13 07:30)
DX: O26.62 Liver and biliary tract disorders in childbirth (principal); K83.1 Obstruction of bile duct; O34.211 Maternal care for low transverse scar from previous cesarean delivery; Z67.40 Type O blood, Rh positive; Z37.0 Single live birth; Z3A.36 36 weeks gestation of pregnancy; Z87.891 Personal history of nicotine dependence
CPT/HCPCS: 36415; 76942; 85027; 86850; 86900; 86901; A9270; J0690; J1100; J1170; J2001; J2300; J2405; J2590; J2795; J7121

== ENCOUNTER 2023-07-27 11:46 | Emergency (ER) | payer OTHER ==
[~2023-07-27] VITALS: Ht 160 cm; Wt 98.6 kg
[2023-07-27 13:16] LABS: BILIRUBIN, URINE NEGATIVE (negative); BLOOD/HGB, URINE TRACE-I (Negative); KETONE, URINE NEGATIVE (Negative); LEUK ESTERASE, URINE SMALL (negative); NITRITE, URINE NEGATIVE (negative); PH, URINE 7.5 (5-7)
[2023-07-27 13:27] LABS: BACTERIA, URINE RARE /hpf (negative); CASTS, URINE NONE SEEN \\lpf; COLLECTION TYPE, URINE CLEAN CATCH; CRYSTALS, URINE NONE SEEN (0-1+); EPITHELIAL CELLS, URINE SQUAMOUS 1+ /lpf (0-1+); RED BLOOD CELLS, URINE 0-1 /hpf (0-5); REFLEX CULTURE, URINE No (No)
[2023-07-27 13:30] LABS: BASOPHILS 0.6 % (0-2); HEMATOCRIT 44.5 % (35.0-50.0); HEMOGLOBIN 14.6 g/dL (12.0-18.0); LYMPHOCYTES 24.6 % (24-44); MCH 28.7 (27-36); MCHC 32.8 g/dl (30-36); MCV 87.3 fl (81-99); MONOCYTES 5.5 % (0-12); NEUTROPHILS 67.3 % (39-80); PLATELET COUNT 286 K/uL (140-440); RDW 15.8 (10.5-15.0)
[2023-07-27 13:32] LABS: AMPHETAMINES, UR NEGATIVE (NEGATIVE); BARBITURATES, UR NEGATIVE (NEGATIVE); BENZODIAZEPINES, UR NEGATIVE (NEGATIVE); BUPRENORPHINE,UR NEGATIVE (NEGATIVE); COCAINE, UR NEGATIVE (NEGATIVE); MARIJUANA (THC), UR NEGATIVE (NEGATIVE); MDMA, UR NEGATIVE (NEGATIVE); METHADONE, UR NEGATIVE (NEGATIVE); METHAMPHETAMINE, UR NEGATIVE (NEGATIVE); OPIATES, UR NEGATIVE (NEGATIVE); OXYCODONE, UR NEGATIVE (NEGATIVE); PHENCYCLIDINE, UR NEGATIVE (NEGATIVE); TRICYCLIC ANTIDEPRESSANT, UR NEGATIVE (NEGATIVE)
[2023-07-27 13:49] LABS: ALBUMIN 4.4 g/dL (3.4-5.0); ALBUMIN/GLOBULIN RATIO 1.13 (1.1-2.4); ANION GAP 14.6 (7-21); BILIRUBIN, TOTAL 0.2 ng/dL (0.2-1.0); BUN/CREATININE RATIO 18.18 (6.0-28.6); CALCIUM 10.4 mg/dL (8.5-10.1); CREATININE, SERUM 0.77 mg/dL (0.55-1.02); POTASSIUM 3.6 mmol/L (3.5-5.1); PROTEIN, TOTAL 8.3 g/dL (6.4-8.2)
[2023-07-27 14:29] VITALS: BP 123/82
== END 2023-07-27 14:30 | disposition home or self-care (01) ==
LOC: ED 11:46
PROVIDERS: Internal Medicine
DX: Z77.098 Contact with and (suspected) exposure to other hazardous, chiefly nonmedicinal, chemicals (principal); Z87.891 Personal history of nicotine dependence; Z88.5 Allergy status to narcotic agent; Z88.6 Allergy status to analgesic agent; Z88.8 Allergy status to other drugs, medicaments and biological substances
CPT/HCPCS: 36415; 36600; 70450; 71045; 80053; 81001; 82803; 85025; 94640; 99284-25